=== PATIENT | male | born 1970 | race Caucasian/White ===

== ENCOUNTER 2023-09-18 12:26 | Outpatient (CLI) | payer OTHER, SELFPAY ==
--- NOTE | 2023-09-18 12:36 | CT_ITS ---
WS: [id number] CT ABDOMEN PELVIS TECHNIQUE: Contrast-enhanced CT of the abdomen and pelvis with coronal and sagittal reformatted image s. CLINICAL INFORMATION: RUQ PAIN COMPARISON: None. DLP: 697.[address] scans at [facility] use at least one of these dose optimization techniques: automated e xposure control; mA and/or kV adjustment per patient size (includes targeted exams where dose is matc hed to clinical indication); or iterative reconstruction. FINDINGS: Inflammatory stranding and edema about the hepatic flexure within the RIGHT upper quadrant. Findings suspicious for acute diverticulitis or colitis post colonoscopy. Small adjacent fluid collection in t his area abutting the traversing duodenum. Small fluid collection with air measures approximately 2.1 x 2.7 cm suspicious for a contained perforation. Small amount of fluid and edema extends to the gall bladder fossa although gallbladder otherwise appears normal. Recommend correlation with biliary funct ion studies. Diffuse fatty filtration of the liver. Hepatomegaly. Normal GE junction. Peripherally calcified splen ic cyst is similar in appearance to previous. Normal pancreas. Normal caliber abdominal aorta. Celiac and SMA appear patent. Reactive lymph nodes in the maryam hepatis. Adrenal glands are normal. Normal renal parenchymal enhancement. No hydronephrosis. Tiny fat-containing umbilical hernia. Normal appendix in the RIGHT lower quadrant. No free fluid in t he pelvis. Tiny noncalcified nodule in the RIGHT middle lobe measuring 3 mm. Additional noncalcified nodule along the fissure measuring 4 mm. Lung bases are well aerated. IMPRESSION: 1. Diffuse thickening with inflammatory stranding and edema involving the hepatic flexure colon susp icious acute focal colitis or diverticulitis post colonoscopy. Surrounding inflammatory stranding and edema. 2. Suspected small contained diverticular perforation with a fluid collection measuring 2.1 x 2.7 cm abutting the traversing duodenum. No free air in the abdomen. 3. Inflammatory stranding and edema extends to the gallbladder fossa which otherwise appears normal. Recommend correlation with gallbladder function studies. 4. Diffuse fatty infiltration liver of the liver with hepatomegaly. 5. 3 and 4 mm noncalcified nodules in the RIGHT middle lobe and along the fissure. RIGHT middle lobe nodule is stable since 2018. Recommend 12-month CT chest follow-up. 6. Stable previously described splenic cyst measuring 3.9 x 3.5 cm with peripheral calcification. Notified Adri ASHER at [facility] 09/18/2023 1:45 PM. Findings discussed with patient and . Patient will remain in the radiology suite pending decision regarding admission for intravenous antibiotics
[2023-09-18] MEDS: iohexol 350 mg/mL 500 mL Btl (per mL) IV (13:12)
== END 2023-09-18 12:27 | disposition home or self-care (01) ==
PROVIDERS: Family Provider Family Medicine; PCP Clinical Nurse Specialist Adult Health; Visit Provider Nurse Practitioner Family
DX: R10.11 Right upper quadrant pain (principal); R93.3 Abnormal findings on diagnostic imaging of other parts of digestive tract; K76.0 Fatty (change of) liver, not elsewhere classified; R91.8 Other nonspecific abnormal finding of lung field
CPT/HCPCS: 74177; Q9967

== ENCOUNTER 2023-09-18 14:07 | Inpatient (IN) | payer OTHER, SELFPAY ==
[2023-09-18 14:09] VITALS: BP 124/82; PULSE 83; RESP 16; TEMP 37.2; O2SAT 98; BMI 30.5
--- NOTE | 2023-09-18 14:27 | ED_ITS ---
HPI - Abdominal Pain General: Chief Complaint: Abdominal Pain Stated Complaint: perf bowel Time Seen by Provider: 09/18/23 14:21 Source: patient Mode of arrival: ambulatory Limitations: no limitations History of Present Illness: 53-year-old male states he had a colonoscopy a little over 2 weeks ago he states that he removed multiple polyps states he has been having severe abdominal pain since then. He states today his pain and actually improved slightly still having pain for [address] scan done and was sent here for CT scan for diverticulitis and possible perforation. No vomiting no fever Associated Symptoms: Denies chills, diarrhea, fever(s), nausea and vomiting Review of Systems Const: Denies: fever(s), chills, body aches or change in appetite ENMT: Denies: throat pain or dental pain Card: Denies: chest pain Resp: Denies: dyspnea GI: Reports: abdominal pain; Denies: nausea, vomiting or diarrhea Musc: Denies: neck pain or back pain Skin/Breast: Denies: rash Neuro: Denies: headache(s) Physical Exam Const: COMMON NORMALS: no acute distress, patient oriented x3 and healthy appearing HENMT: COMMON NORMALS: normocephalic and atraumatic HEAD & SCALP: normocephalic and atraumatic Neck/C-Spine: COMMON NORMALS: full ROM and supple Chest: COMMONS NORMALS: normal inspection of the chest and normal palpation of entire chest wall Resp: COMMON NORMALS: normal respiratory effort, No retractions, No use of accessory muscles and clear to auscultation bilaterally AUSCULTATION: clear to auscultation bilaterally Cardio: COMMON NORMALS: regular rate, regular rhythm and No murmurs present (Cardio) RATE: regular rate RHYTHM: regular rhythm GI: COMMON NORMALS: Normal to inspection, nondistended, normoactive bowel sounds present, Soft to palpation and no masses PALPATION: Yes Soft to palpation and Yes Tenderness to palpation present (GI) Details: LLQ Extremity: COMMON NORMALS: normal to inspection and full ROM Neuro: COMMON NORMALS: patient oriented x3, moves all extremities and no focal motor deficits Psych: COMMON NORMALS: mental status grossly normal, Normal thought process present and cooperative THOUGHT PROCESS: Normal thought process present Skin: COMMON NORMALS: no rashes or lesions noted and no wounds GENERAL SKIN EXAM: no rashes or lesions noted Course Vital Signs: Vital signs: Vital Signs Temperature 98.9 F 09/18/23 14:09 Pulse Rate 83 09/18/23 14:09 Respiratory Rate 16 09/18/23 14:09 Blood Pressure 124/82 09/18/23 14:09 Pulse Oximetry 98 09/18/23 14:09 MDM - Abdominal Pain Medical Decision Making Patient presents here with abdominal pain does have diverticulitis with a contained perforation blood work here is normal no signs of for ER spoke to surgery along with hospitalist will admit for IV antibiotics Medical Records I reviewed the patient's medical records. Lab Data I reviewed the patient's lab results. 09/18/23 14:30 09/18/23 14:30 Labs/Radiology: Laboratory Results WBC 8.31 10^3/uL (3.29-11.43) 09/18/23 14:30 RBC 4.50 10^6/uL (3.85-5.65) 09/18/23 14:30 Hgb 13.80 g/dL (11.27-16.99) 09/18/23 14:30 Hct 41.8 % (37-53) 09/18/23 14:30 MCV 92.9 fl (82-101) 09/18/23 14:30 MCH 30.7 pg (27-33) 09/18/23 14:30 MCHC 33.0 g/dL (30-55) 09/18/23 14:30 RDW 12.1 % (12.1-15.1) 09/18/23 14:30 Plt Count 481 10^3/cmm (157-399) H 09/18/23 14:30 MPV 8.5 fL (7.4-10.4) 09/18/23 14:30 Neut % (Auto) 55.5 % 09/18/23 14:30 Lymph % (Auto) 34.7 % 09/18/23 14:30 [place] % (Auto) 7.6 % 09/18/23 14:30 Eos % (Auto) 1.3 % 09/18/23 14:30 Baso % (Auto) 0.4 % 09/18/23 14:30 Neut # (Auto) 4.62 10^3/uL (1.8-7.7) 09/18/23 14:30 Lymph # (Auto) 2.9 10^3/uL (0.8-4.8) 09/18/23 14:30 [place] # (Auto) 0.6 10^3/uL (0.2-0.9) 09/18/23 14:30 Eos # (Auto) 0.1 10^3/uL (0.0-0.8) 09/18/23 14:30 Baso # (Auto) 0.0 10^3/uL (0.0-0.1) 09/18/23 14:30 Nucleated RBC % (auto) 0 % 09/18/23 14:30 Nucleated RBCs # 0.0 /100WBC 09/18/23 14:30 Sodium 136 mmol/L (136-145) 09/18/23 14:30 Potassium 4.0 mmol/L (3.5-5.1) 09/18/23 14:30 Chloride 98 mmol/L (98-107) 09/18/23 14:30 Carbon Dioxide 28 mmol/L (22-29) 09/18/23 14:30 Anion Gap 14.0 (5-19) 09/18/23 14:30 BUN 9 mg/dL (6-20) 09/18/23 14:30 Creatinine 0.7 mg/dL (0.7-1.2) 09/18/23 14:30 GFR Calculation 117.5 mL/min (90-130) 09/18/23 14:30 Glucose 118 mg/dL (65-115) H 09/18/23 14:30 Calculated Osmolality 282 mOsm/kg (285-295) L 09/18/23 14:30 Lactic Acid 1.5 mmol/L (0.5-2.2) 09/18/23 14:30 Calcium 9.5 mg/dL (8.5-10.5) 09/18/23 14:30 Total Bilirubin 0.3 mg/dL (0.15-1.2) 09/18/23 14:30 AST 20 U/L (0-40) 09/18/23 14:30 ALT 33 U/L (0-41) 09/18/23 14:30 Alkaline Phosphatase 88 U/L (40-130) 09/18/23 14:30 Total Protein 7.6 g/dL (6.6-8.7) 09/18/23 14:30 Albumin 3.9 g/dL (3.5-5.2) 09/18/23 14:30 Globulin 3.7 g/dL (1.3-4.6) 09/18/23 14:30 Lipase 44 U/L (13-60) 09/18/23 14:30 All radiology interpretation(s) finalized by discharge Discharge Plan Discharge Patient Disposition: Admitted As Inpatient Clinical Impression: Diverticulitis Condition: Stable Prescriptions: No Action Paxil 40 mg Tablet 40 mg PO QAM Referrals: Alex Rodriguez NP [Primary Care Provider] - Suraj Fitch MD [Family Provider] - Coding Level of Care Code ED Oracle Database Manager for Robert Us
[2023-09-18] MEDS: ciprofloxacin 400 MG/200 ML PREMIX 200 MG IV ×2 (14:41→20:10)
[2023-09-18] MEDS: metroNIDAZOLE IV 500 MG/100 ML PREMIX 100 MG IV ×2 (14:44→18:36)
[2023-09-18 15:20] LABS: Basophils % 0.4 %; Eosinophils # 0.1 10^3/uL (0.0-0.8); Eosinophils % 1.3 %; Hematocrit 41.8 % (37-53); Lymphocytes # 2.9 10^3/uL (0.8-4.8); Lymphocytes % 34.7 %; Mean Corpuscular Hemoglobin 30.7 pg (27-33); Mean Corpuscular Volume 92.9 fl (82-101); Mean Platelet Volume 8.5 fL (7.4-10.4); Monocytes # 0.6 10^3/uL (0.2-0.9); Monocytes % 7.6 %; Neutrophils # 4.62 10^3/uL (1.8-7.7); Neutrophils % 55.5 %; Nucleated Red Blood Cells % 0 %; Platelet Count 481 10^3/cmm (157-399); Red Cell Distribution Width 12.1 % (12.1-15.1); White Blood Count 8.31 10^3/uL (3.29-11.43)
[2023-09-18 15:26] LABS: Alanine Aminotransferase 33 U/L (0-41); Albumin Level 3.9 g/dL (3.5-5.2); Alkaline Phosphatase 88 U/L (40-130); Aspartate Amino Transferase 20 U/L (0-40); Blood Urea Nitrogen 9 mg/dL (6-20); Calcium 9.5 mg/dL (8.5-10.5); Carbon Dioxide 28 mmol/L (22-29); Chloride 98 mmol/L (98-107); Globulin 3.7 g/dL (1.3-4.6); Glomerular Filtration Rate 117.5 mL/min (90-130); Glucose 118 mg/dL (65-115); Lipase 44 U/L (13-60); Osmolality Calculated 282 mOsm/kg (285-295); Sodium 136 mmol/L (136-145); Total Bilirubin 0.3 mg/dL (0.15-1.2); Total Protein 7.6 g/dL (6.6-8.7)
[2023-09-18 15:27] LABS: Lactic Sepsis W/Reflex 1.5 mmol/L (0.5-2.2)
--- NOTE | 2023-09-18 18:26 | P.HP_ITS ---
Providers/Chief Complaint Admitting Physician: Alejandro Renteria DO Primary Care Provider: Alex Rodriguez Chief Complaint: perf bowel History of Present Illness Lucas Hyde is a 53 year old male status post colonoscopy on August 31. Patient states that that night he had onset of pain as well as fever. He continued to have significant pain over the next week or 2. He never repeated a fever. He his abdominal pain was improving. 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 He was finally frustrated and came to the emergency room for an answer. He states that his physician who completed the colonoscopy has been out of town since the exam and has not followed up with a provider. Patient states he has very minimal pain at this point. He has been without nausea. He has a poor appetite and gets full quickly. Review of Systems Const: Denies: chills Eyes: Denies: change in vision ENMT: Denies: throat pain or nasal congestion Card: Denies: chest pain or palpitations Resp: Denies: dyspnea or productive cough GI: Denies: nausea, vomiting or change in stool character : Denies: difficulty urinating or dysuria Musc: Denies: back pain or extremity pain Skin/Breast: Denies: rash or lesions Neuro: Denies: headache(s) or dizziness Psych: Denies: anxiety or depression [place]/Lymph: Denies: easy bruising or easy bleeding Medications/Allergies Home Medications Medication Instructions Recorded Confirmed Last Taken Type paroxetine HCl 40 mg tablet (Paxil) 40 mg PO QAM 09/18/23 09/18/23 09/18/23 History Allergies Allergy/AdvReac Type Severity Reaction Status Date / Time No Known Allergies Allergy Unverified 09/18/23 15:03 Vitals/I&O/Wt Last Vital Signs Temp 98.9 F 09/18/23 14:09 Pulse 83 09/18/23 14:09 Resp 16 09/18/23 14:09 BP 124/82 09/18/23 14:09 Pulse Ox 98 09/18/23 14:09 O2 Del Method Room Air 09/18/23 16:55 09/18/23 09/18/23 09/18/23 06:59 14:59 22:59 Intake Total 300 / 300 Balance 300 / 300 Weight last 48 hrs Weight 107.955 kg Physical Exam Narrative: Middle-age male in no acute distress. HEENT head is normocephalic atraumatic pupils equal and reactive to light and accommodation extraocular muscles are intact there is no scleral icterus neck is supple no JVD carotid bruits or lymphadenopathy Chest rises symmetrically with inspiration Respiratory normal breath sounds normal effort no wheezes rales or rhonchi Heart: Normal S1-S2 without murmurs clicks gallops or rubs Abdomen mildly tender to deep palpation in the right mid abdomen bowel sounds are sluggish no hepatosplenomegaly no rebound rigidity or guarding Back/pelvis: No kyphosis or scoliosis noted no CVA tenderness. Neuro alert and oriented x4 nonfocal motor and sensory exam cranial nerves II through XII grossly intact Psych: Mood and affect appropriate Skin no lesions or rash noted Data 09/18/23 14:30 09/18/23 14:30 Micro: Microbiology 09/18/23 14:52 Blood Culture - Preliminary Blood SPECIMEN COLLECTED 09/18/23 14:50 Blood Culture - Preliminary Blood SPECIMEN COLLECTED CT Abd/Pel: Radiologist's impression: IMPRESSION: 1.? Diffuse thickening with inflammatory stranding and edema involving the hepat ic flexure colon suspicious acute focal colitis or diverticulitis post colonoscopy. Surrounding inflammatory stranding and edema. 2.? Suspected small contained diverticular perforation with a fluid collection measuring 2.1 x 2.7 cm abutting the traversing duodenum. No free air in the abdomen. 3.? Inflammatory stranding and edema extends to the gallbladder fossa which otherwise appears normal. Recommend correlation with gallbladder function studies. 4.? Diffuse fatty infiltration liver of the liver with hepatomegaly. 5.? 3 and 4 mm noncalcified nodules in the RIGHT middle lobe and along the fis sure. RIGHT middle lobe nodule is stable since 2018. Recommend 12-month CT chest follow-up. 6.? Stable previously described splenic cyst measuring 3.9 x 3.5 cm with peripheral calcification. A&P Assessment and plan (1) Diverticulitis: Cipro and Flagyl Overall patient is better than post colonoscopy. We will still treat for a total of 10 to 14 days. (2) Perforation bowel: As below contained. (3) Fatty liver disease, nonalcoholic: Newly diagnosed (4) Status post colonoscopy with polypectomy: Patient reports 7 polyps removed and I do not find any pathology reports. (5) Depression: Continue Paxil Attestations Medical Necessity Statement*: Admitted for diverticulitis with contained perforated bowel in the transverse colon. Requires IV antibiotics and bowel rest Coding Level of Care Code Acute Code for Chg Fwd Diagnoses Diverticulitis K57.92 Perforation bowel K63.1 Fatty liver disease, nonalcoholic K76.0 Status post colonoscopy with polypectomy Z98.890 Depression F32.A
[2023-09-18] MEDS: sodium chloride 0.9% 1,000 ML 100 ML IV (18:35)
[2023-09-18] MEDS: enoxaparin 40 mg/0.4 mL Syringe SUBCUT (18:35)
[2023-09-18 19:00] VITALS: BP 145/95; PULSE 79; RESP 19; TEMP 36.8; O2SAT 98
[2023-09-18 23:40] VITALS: BP 128/73; PULSE 77; RESP 19; TEMP 36.9; O2SAT 95
[2023-09-19] MEDS: metroNIDAZOLE IV 500 MG/100 ML PREMIX 100 MG IV ×3 (02:13→17:47)
[2023-09-19 03:38] VITALS: BP 124/81; PULSE 71; RESP 19; TEMP 36.9; O2SAT 97
[2023-09-19 05:05] LABS: Basophils % 0.4 %; Eosinophils # 0.1 10^3/uL (0.0-0.8); Eosinophils % 1.6 %; Hematocrit 40.3 % (37-53); Lymphocytes # 2.6 10^3/uL (0.8-4.8); Lymphocytes % 31.7 %; Mean Corpuscular HGB Conc 32.3 g/dL (30-55); Mean Corpuscular Hemoglobin 30.7 pg (27-33); Mean Platelet Volume 8.3 fL (7.4-10.4); Monocytes # 0.5 10^3/uL (0.2-0.9); Monocytes % 6.4 %; Neutrophils # 4.81 10^3/uL (1.8-7.7); Neutrophils % 59.2 %; Nucleated Red Blood Cells % 0 %; Platelet Count 393 10^3/cmm (157-399); Red Blood Count 4.24 10^6/uL (3.85-5.65); Red Cell Distribution Width 12.2 % (12.1-15.1); White Blood Count 8.12 10^3/uL (3.29-11.43)
[2023-09-19 05:25] LABS: Anion Gap 12.4 (5-19); Blood Urea Nitrogen 8 mg/dL (6-20); Calcium 9.3 mg/dL (8.5-10.5); Carbon Dioxide 30 mmol/L (22-29); Chloride 98 mmol/L (98-107); Glomerular Filtration Rate 117.5 mL/min (90-130); Glucose 120 mg/dL (65-115); Osmolality Calculated 282 mOsm/kg (285-295); Potassium 4.4 mmol/L (3.5-5.1); Sodium 136 mmol/L (136-145)
[2023-09-19] MEDS: ciprofloxacin 400 MG/200 ML PREMIX 200 MG IV ×2 (06:21→17:46)
[2023-09-19] MEDS: sodium chloride 0.9% 1,000 ML 100 ML IV ×2 (06:21→20:31)
[2023-09-19] MEDS: PARoxetine 20 mg Tablet 40 MG PO (06:26)
[2023-09-19 07:38] VITALS: BP 121/78; PULSE 74; RESP 17; TEMP 36.5; O2SAT 97
--- NOTE | 2023-09-19 08:24 | P.CONIM_ITS ---
Providers/Reason For Consult Consulting Physician/Specialty*: Dr. Christian Smith DO/General surgery Reason for Consult*: Complicated diverticulitis Attending Physician: Alejandro Renteria DO Primary Care Provider: Alex Rodriguez History of Present Illness History of Present Illness Lucas Hyde is a 53 year old male who presented to the hospital with a 2-1/2-week history of right upper quadrant abdominal pain nausea and anorexia. He had his first colonoscopy on August 31 at an outside facility and later that night had abdominal pain fever and chills. He reported that he has had pain ever since but that it slowly improved over time. The pain is located in the right upper quadrant and does not radiate. Palpation made the pain worse. Nothing made the pain better. He denies any emesis, diarrhea, constipation, hematochezia and/or melena. He had a CT of the abdomen pelvis in the ER yesterday which showed perforated diverticulitis with a contained micrope rforation at the hepatic flexure of the colon and significant surrounding inflammation. He was admitted to the hospital for IV antibiotics. Review of Systems General: Reports: 10 or more systems reviewed and unremarkable except in HPI and below Medications/Allergies Home Medications Medication Instructions Recorded Confirmed Last Taken Type paroxetine HCl 40 mg tablet (Paxil) 40 mg PO QAM 09/18/23 09/18/23 09/18/23 History Allergies Allergy/AdvReac Type Severity Reaction Status Date / Time No Known Allergies Allergy Unverified 09/18/23 15:03 Current Medications Generic Name Dose Route Start Last Admin Trade Name Freq PRN Reason Stop Dose Admin Enoxaparin Sodium 40 mg 09/18/23 18:30 09/18/23 18:35 Enoxaparin 40 Mg/0.4 Ml Syringe SUBCUT 40 mg Q24H BLOSSOM Administration Sodium Chloride 1,000 mls @ 100 mls/hr 09/18/23 18:30 09/19/23 06:21 Sodium Chloride 0.9% IV 100 mls/hr .Q10H BLOSSOM Administration Ciprofloxacin/Dextrose 400 mg in 200 mls @ 200 mls/hr 09/18/23 18:30 09/19/23 06:21 Cipro IV 200 mls/hr Q12H BLOSSOM Administration Protocol Metronidazole 500 mg in 100 mls @ 100 mls/hr 09/18/23 18:30 09/19/23 03:31 Flagyl Iv IV Infused Q8H BLOSSOM Infusion Protocol Paroxetine HCl 40 mg 09/19/23 06:00 09/19/23 06:26 Paroxetine 20 Mg Tablet PO 40 mg QAM BLOSSOM Administration Vitals/I&O/Wt Last Vital Signs Temp 97.7 F 09/19/23 07:38 Pulse 74 09/19/23 07:38 Resp 17 09/19/23 07:38 BP 121/78 09/19/23 07:38 Pulse Ox 97 09/19/23 07:38 O2 Del Method Room Air 09/18/23 19:00 09/18/23 09/19/23 09/19/23 22:59 06:59 14:59 Intake Total 1080 / 1080 1100 / 2180 Balance 1080 / 1080 1100 / 2180 Weight last 48 hrs Weight 238 lb Physical Exam Narrative: General : Patient is well developed , no acute distress, oriented x3 Head : Normal cephalic, a-traumatic. Ears : Pinnae and external canal are normal. Hearing is normal. Eyes : PERRLA, Sclera and injection are normal. No conjunctival discharge. Nose : Mucous membranes are without erythema. Throat : buccal mucosa is normal, gums are without significant recession or hypertrophy. Lungs : Equal chest rise bilaterally, no use of accessory muscles, trachea is midline. Cor : Rate and rhythm are normal. Abdomen : Soft, ND, NT, no g/r/m Extremities : No edema, no cyanosis or clubbing, dorsalis pedis pulses are prese nt bilaterally, non-tender to palpation of calves. Upper extremities are normal bilaterally. Back : non-tender to palpation, no CVA tenderness. Neuro : CN II - XII intact, Upper and lower extremities have equal and full strength Data 09/19/23 04:53 09/19/23 04:53 Micro: Microbiology 09/18/23 14:52 Blood Culture - Preliminary Blood SPECIMEN COLLECTED 09/18/23 14:50 Blood Culture - Preliminary Blood SPECIMEN COLLECTED A&P Assessment and plan (1) Diverticulitis of large intestine with complication: (2) Status post colonoscopy with polypectomy: Plan Recommend 24 to 48 hours of IV antibiotics followed by a 2-week course of Augmentin 875/125 twice daily. I will advance him to a full liquid diet which she can be discharged on. He can advance to a regular diet at home. I would like to see him in 2 weeks and have him get a repeat CT of the abdomen pelvis with IV contrast just prior to seeing me in the office. If his inflammation and abscess have not improved at that time we will consider IR drainage or possible infectious disease consult. No acute surgical intervention. Medical management per hospitalist Coding Level of Care Code 58636 Diagnoses Diverticulitis of large intestine with complication K57.32 Status post colonoscopy with polypectomy Z98.890
--- NOTE | 2023-09-19 08:33 | PC.CHAP ---
Pastoral Care Encounter/Spiritual Assessment Type of Contact [] Declined stock receiver visit [] Patient/Family/Request visit [] Outpatient visit [] Follow-up visit [] Physician referral [] Code/Alert [x] Routine visit [] Staff referral [] Actively dying [] Patient sleeping [] Family support [] [] Out of room [] Palliative care [] [] Receiving care in room [] Pre-surgical visit [] Trauma [] Long length of stay [] ICU visit [] Other: Relational/Emotional Strength [x] Patient feels connected with others/family/visitors/staff [] Distress [] Loneliness/isolation [] Abandonment Spirituality of Patient [] Person of Jocelynn [] Attends Judaism of their Jocelynn [] Believes in Prayer [] Reads Bible or Jehovah'S Witness materials [x] There are Spiritual issues to be addressed Aircraft Designer Interventions [] Prayer [] Active listening [] Non-anxious presence [] Spiritual/emotional support [] Crisis/trauma care [] Spiritual counseling [] Bereavement support [] Provided bereavement packet [] Provided Bible/devotional materials [] Provided toy/stuffed animal, coloring book to patient or family member [] Provided Communion [] Anointing/[place] [] Salvation [] Completed spiritual assessment [x] Other: Declined Aircraft Designer visit Impact on Illness or Injury [] Angry [] Fearful [] Anxious [] Often cries [] Exhaustion [] Unable to work [] Unable to attend jain [] Unable to walk/stand [] Unable to read [] Unable to drive [] Unable to eat/drink [] Unable to sleep [] Unable to be with family [] Patient intubated [] Other: Summary Time spent with patient
--- NOTE | 2023-09-19 11:26 | PM.PN ---
Subjective Subjective: Patient seen with at bedside. He reports he has no further abdominal pain. He reports that he is hungry and would like an increase in his diet Vitals/I&O/Wt Last Vital Signs Temp 97.7 F 09/19/23 07:38 Pulse 74 09/19/23 07:38 Resp 17 09/19/23 07:38 BP 121/78 09/19/23 07:38 Pulse Ox 97 09/19/23 07:38 O2 Del Method Room Air 09/18/23 19:00 09/18/23 09/19/23 09/19/23 22:59 06:59 14:59 Intake Total 1080 / 1080 1100 / 2180 200 / 200 Balance 1080 / 1080 1100 / 2180 200 / 200 Weight last 48 hrs Weight 107.955 kg Physical Exam Narrative: General : Patient is well developed , no acute distress, oriented x3 Heart: Regular normal S1-S2 without murmurs clicks gallops rubs Lungs : Clear to auscultation Abdomen : Soft, nontender to deep palpation in the right mid abdomen Extremities : No clubbing cyanosis or edema Data 09/19/23 04:53 09/19/23 04:53 Micro: Microbiology 09/18/23 14:52 Blood Culture - Preliminary Blood SPECIMEN COLLECTED 09/18/23 14:50 Blood Culture - Preliminary Blood SPECIMEN COLLECTED A&P Assessment and plan (1) Diverticulitis: Cipro and Flagyl Overall patient is better than post colonoscopy. We will still treat for a total of [address] Smith saw patient today and recommends a 14-day antibiotic course switching to Augmentin at discharge Advance to full liquid diet as per Dr. Smith's recommendations Dr. Smith will follow-up in 2 weeks with a repeat CT of abdomen and pelvis (2) Perforation bowel: As below contained. (3) Fatty liver disease, nonalcoholic: Newly diagnosed (4) Status post colonoscopy with polypectomy: Patient reports 7 polyps removed and I do not find any pathology reports. (5) Depression: Continue Paxil Attestations Medical Necessity Statement*: Admitted for diverticulitis with contained perforated bowel in the transverse colon. Requires IV antibiotics and bowel rest Coding Level of Care Code Acute Code for [facility] Diagnoses Diverticulitis K57.92 Perforation bowel K63.1 Fatty liver disease, nonalcoholic K76.0 Status post colonoscopy with polypectomy Z98.890 Depression F32.A
[2023-09-19 12:00] VITALS: BP 127/85; PULSE 76; RESP 17; TEMP 36.6; O2SAT 96
[2023-09-19 15:54] VITALS: BP 120/69; PULSE 77; RESP 17; TEMP 36.8; O2SAT 97
[2023-09-19] MEDS: enoxaparin 40 mg/0.4 mL Syringe SUBCUT (17:46)
[2023-09-19 19:52] VITALS: BP 109/69; PULSE 73; RESP 16; TEMP 36.8; O2SAT 97
[2023-09-20] VITALS: BP 132/74; PULSE 67; RESP 15; TEMP 36.9; O2SAT 96
[2023-09-20] MEDS: metroNIDAZOLE IV 500 MG/100 ML PREMIX 100 MG IV (03:50)
[2023-09-20 04:00] VITALS: BP 125/75; PULSE 74; RESP 16; TEMP 36.7; O2SAT 95
[2023-09-20] MEDS: PARoxetine 20 mg Tablet 40 MG PO (06:36)
[2023-09-20] MEDS: sodium chloride 0.9% 1,000 ML 100 ML IV (06:36)
[2023-09-20] MEDS: ciprofloxacin 400 MG/200 ML PREMIX 200 MG IV (06:56)
[2023-09-20 07:15] VITALS: BP 123/77; PULSE 73; RESP 18; TEMP 36.7; O2SAT 96
--- NOTE | 2023-09-20 10:31 | PM.DCS ---
Discharge Providers Date of Admission: 09/18/23 15:37 Date of Discharge: September 20, 2023 Attending Provider at Admission: Alejandro Renteria DO Attending Provider at Discharge: Alejandro Renteria DO Consults: Dr. Smith - surgery Primary Care Provider: Alex Rodriguez Diagnoses at Discharge Discharge Diagnosis (1) Diverticulitis: Status: Acute (2) Perforation bowel: Status: Acute Permanent problem details: Contained small diverticular perforation with fluid collection measuring 2.1 x 2.7 cm (3) Fatty liver disease, nonalcoholic: Status: Chronic (4) Status post colonoscopy with polypectomy: Status: Acute (5) Depression: Status: Acute Reason for Visit Reason for Visit: perf bowel Brief History: Lucas Hyde is a 53 year old male status post colonoscopy on August 31.? Patient states that that night he had onset of pain as well as fever.? He continued to have significant pain over the next week or 2.? He never repeated a fever.? He his abdominal pain was improving.? 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 He was finally frustrated and came to the emergency room for an answer.? He states that his physician who completed the colonoscopy has been out of town since the exam and has not followed up with a provider. Patient states he has very minimal pain at this point.? He has been without nausea.? He has a poor appetite and gets full quickly. Hospital Course Hospital Course Patient was found to have 1.? Diffuse thickening with inflammatory stranding and edema involving the hepatic flexure colon suspicious acute focal colitis or diverticulitis post colonoscopy. Surrounding inflammatory stranding and edema. 2.? Suspected small contained diverticular perforation with a fluid collection measuring 2.1 x 2.7 cm abutting the traversing duodenum. No free air in the abdomen. 3.? Inflammatory stranding and edema extends to the gallbladder fossa which otherwise appears normal. Recommend correlation with gallbladder function studies. He was admitted for IV antibiotics and close follow-up regarding the contained perforation for worsening. Patient tolerated the IV antibiotics well. His pain was quick to resolve. Surgery consult was obtained and recommended 14-day course of antibiotics and then CT scan to follow-up this area of perforation to ascertain resolution or if further work-up will be needed. Patient is discharged in stable and improved condition with dietary recommendations of soft bland diet and increasing as tolerated. He was educated on the nausea vomiting diarrhea side effects of Augmentin and counseled to follow-up with surgeon if side effects occur. Physical Exam Narrative: General : Patient is well developed , no acute distress, oriented x3 Heart: Regular normal S1-S2 without murmurs clicks gallops rubs Lungs : Clear to auscultation Abdomen : Soft, nontender to deep palpation in the right mid abdomen Extremities : No clubbing cyanosis or edema Discharge Data Studies Completed and Pending Pending at discharge Category Date Time Status Blood Culture Stat Lab 09/18/23 14:52 Results Laboratory Results WBC 8.12 10^3/uL (3.29-11.43) 09/19/23 04:53 RBC 4.24 10^6/uL (3.85-5.65) 09/19/23 04:53 Hgb 13.00 g/dL (11.27-16.99) 09/19/23 04:53 Hct 40.3 % (37-53) 09/19/23 04:53 MCV 95.0 fl (82-101) 09/19/23 04:53 MCH 30.7 pg (27-33) 09/19/23 04:53 MCHC 32.3 g/dL (30-55) 09/19/23 04:53 RDW 12.2 % (12.1-15.1) 09/19/23 04:53 Plt Count 393 10^3/cmm (157-399) 09/19/23 04:53 MPV 8.3 fL (7.4-10.4) 09/19/23 04:53 Neut % (Auto) 59.2 % 09/19/23 04:53 Lymph % (Auto) 31.7 % 09/19/23 04:53 [place] % (Auto) 6.4 % 09/19/23 04:53 Eos % (Auto) 1.6 % 09/19/23 04:53 Baso % (Auto) 0.4 % 09/19/23 04:53 Neut # (Auto) 4.81 10^3/uL (1.8-7.7) 09/19/23 04:53 Lymph # (Auto) 2.6 10^3/uL (0.8-4.8) 09/19/23 04:53 [place] # (Auto) 0.5 10^3/uL (0.2-0.9) 09/19/23 04:53 Eos # (Auto) 0.1 10^3/uL (0.0-0.8) 09/19/23 04:53 Baso # (Auto) 0.0 10^3/uL (0.0-0.1) 09/19/23 04:53 Nucleated RBC % (auto) 0 % 09/19/23 04:53 Nucleated RBCs # 0.0 /100WBC 09/19/23 04:53 Sodium 136 mmol/L (136-145) 09/19/23 04:53 Potassium 4.4 mmol/L (3.5-5.1) 09/19/23 04:53 Chloride 98 mmol/L (98-107) 09/19/23 04:53 Carbon Dioxide 30 mmol/L (22-29) H 09/19/23 04:53 Anion Gap 12.4 (5-19) 09/19/23 04:53 BUN 8 mg/dL (6-20) 09/19/23 04:53 Creatinine 0.7 mg/dL (0.7-1.2) 09/19/23 04:53 GFR Calculation 117.5 mL/min (90-130) 09/19/23 04:53 Glucose 120 mg/dL (65-115) H 09/19/23 04:53 Calculated Osmolality 282 mOsm/kg (285-295) L 09/19/23 04:53 Lactic Acid 1.5 mmol/L (0.5-2.2) 09/18/23 14:30 Calcium 9.3 mg/dL (8.5-10.5) 09/19/23 04:53 Total Bilirubin 0.3 mg/dL (0.15-1.2) 09/18/23 14:30 AST 20 U/L (0-40) 09/18/23 14:30 ALT 33 U/L (0-41) 09/18/23 14:30 Alkaline Phosphatase 88 U/L (40-130) 09/18/23 14:30 Total Protein 7.6 g/dL (6.6-8.7) 09/18/23 14:30 Albumin 3.9 g/dL (3.5-5.2) 09/18/23 14:30 Globulin 3.7 g/dL (1.3-4.6) 09/18/23 14:30 Lipase 44 U/L (13-60) 09/18/23 14:[address] Abd/Pel: Radiologist's impression: IMPRESSION: 1.? Diffuse thickening with inflammatory stranding and edema involving the hepatic flexure colon suspicious acute focal colitis or diverticulitis post colonoscopy. Surrounding inflammatory stranding and edema. 2.? Suspected small contained diverticular perforation with a fluid collection measuring 2.1 x 2.7 cm abutting the traversing duodenum. No free air in the abdomen. 3.? Inflammatory stranding and edema extends to the gallbladder fossa which otherwise appears normal. Recommend correlation with gallbladder function studies. 4.? Diffuse fatty infiltration liver of the liver with hepatomegaly. 5.? 3 and 4 mm noncalcified nodules in the RIGHT middle lobe and along the fissure. RIGHT middle lobe nodule is stable since 2018. Recommend 12-month CT chest follow-up. 6.? Stable previously described splenic cyst measuring 3.9 x 3.5 cm with peripheral calcification. Vitals Last Vital Signs Temp 98.1 F 09/20/23 07:15 Pulse 73 09/20/23 07:15 Resp 18 09/20/23 07:15 BP 123/77 09/20/23 07:15 Pulse Ox 96 09/20/23 07:15 O2 Del Method Room Air 09/20/23 07:15 Discharge Plan Discharge Patient Disposition: Home Condition: Stable Prescriptions: New amoxicillin-pot clavulanate 875-125 mg tablet 1 tab PO Q12H Qty: 24 0RF Continued Paxil 40 mg Tablet 40 mg PO QAM Discharge Orders: Discharge Order (Routine); Ordered 09/20/23 Ordered By: Alejandro Renteria Referrals: Christian Smith DO [Physician] - 2 weeks Alex Rodriguez NP [Primary Care Provider] - Suraj Fitch MD [Family Provider] - Discharge Diet: Advance as tolerated Discharge Activity: Increase activity as tolerated Discharge Attestations Time Spent in Discharge Care*: less than 30 min Quality Metrics Clinical Quality Measures [ No reported AMI, CVA or VTE this stay] Coding Level of Care Code Acute Code for Chg Fwd Diagnoses Diverticulitis K57.92 Perforation bowel K63.1 Fatty liver disease, nonalcoholic K76.0 Status post colonoscopy with polypectomy Z98.890 Depression F32.A
[2023-09-20 11:17] VITALS: BP 123/81; PULSE 73; RESP 16; TEMP 36.7; O2SAT 95
[2023-09-20 11:45] VITALS: BP 123/81; PULSE 73; RESP 16; TEMP 36.7; O2SAT 95
--- NOTE | 2023-09-20 12:14 | PC.NURSE ---
Discussed discharge paperwork, new medications and follow up visits with patient. Patient verbalized understanding.
== END 2023-09-20 11:45 | disposition home or self-care (01) | DRG 392 ==
LOC: ER 15:46 → MEDSURG 16:06
PROVIDERS: Admitting Provider Internal Medicine; Emergency Provider Emergency Medicine; Family Provider Family Medicine; PCP Clinical Nurse Specialist Adult Health; Visit Provider Internal Medicine
DX: K57.20 Diverticulitis of large intestine with perforation and abscess without bleeding (principal); K76.0 Fatty (change of) liver, not elsewhere classified; Z86.010 Personal history of colon polyps; Z98.890 Other specified postprocedural states; F32.A Depression, unspecified
CPT/HCPCS: 36415; 80048; 80053; 83605; 83690; 85025; 87040; 96365; 96367; 96372; 99285; J0744; J1650; J3490; J7030

== ENCOUNTER 2023-09-27 13:41 | Outpatient (CLI) | payer OTHER, SELFPAY ==
--- NOTE | 2023-09-27 13:30 | CT_ITS ---
WS: [id number] CT ABDOMEN PELVIS TECHNIQUE: Contrast-enhanced CT of the abdomen and pelvis with coronal and sagittal reformatted image s. CLINICAL INFORMATION: diverticulitis COMPARISON: 09/18/2023 DLP: 762.[address] scans at [facility] use at least one of these dose optimization techniques: automated e xposure control; mA and/or kV adjustment per patient size (includes targeted exams where dose is matc hed to clinical indication); or iterative reconstruction. FINDINGS: Again seen is the previously described inflammatory stranding and edema about the hepatic flexure within the RIGHT upper quadrant compatible with acute diverticulitis with perforation. Previously buster cribed small adjacent fluid collection in this area abutting the traversing duodenum today measures 1 .2 x 0.9 cm decreased in size compared to previous. Improved inflammatory stranding and edema within the RIGHT upper quadrant compared to previous. Findings overall are improved compared to 09/18/2023. Adjacent gallbladder is contracted with reactive enhancement. No other significant changes compared t o previous. Diffuse fatty infiltration of the liver. Hepatomegaly. Normal GE junction. Peripherally calcified spl enic cyst is similar in appearance to previous. Normal pancreas. Normal caliber abdominal aorta. Venus ac and SMA appear patent. Reactive lymph nodes in the maryam hepatis. Adrenal glands are normal. Normal renal parenchymal enhancement. No hydronephrosis. Tiny fat-containi ng umbilical hernia. Tiny noncalcified nodule in the RIGHT middle lobe measuring 3 mm. Additional non calcified nodule along the fissure measuring 4 mm. Lung bases are well aerated. IMPRESSION: 1. Improved perforated diverticulitis along the hepatic flexure with improved surrounding inflammato ry stranding and edema. Recommend follow-up to resolution. 2. Previously described peripheral enhancing fluid collection involving the traversing duodenum has decreased in size today measuring 1.2 x 0.9 cm. 3. No other significant changes compared to previous.
[2023-09-27] MEDS: iohexol 350 mg/mL 500 mL Btl (per mL) IV (14:09)
== END 2023-09-27 13:42 | disposition home or self-care (01) ==
LOC: RAD 13:42
PROVIDERS: Family Provider Family Medicine; PCP Clinical Nurse Specialist Adult Health; Visit Provider Surgery
DX: K57.32 Diverticulitis of large intestine without perforation or abscess without bleeding (principal)
CPT/HCPCS: 74177; Q9967

== ENCOUNTER 2024-06-18 10:29 | Outpatient (CLI) | payer SELFPAY ==
--- NOTE | 2024-06-18 10:38 | XR_ITS ---
WS: [id number] XR hip RT 2-3V wo/w pel* [id number] REASON FOR EXAM: PAIN IN RIGHT HIP FINDINGS: No acute fracture. Mild narrowing of the joint space. Moderate subchondral sclerosis of the acetabulum with osteophytosis. There is a vaguely defined lucency and sclerosis within the femoral head. Similar findings are seen i n the left femoral head with a more significant and denser sclerosis. These findings were present in both femoral heads on a previous CT scan of 09/27/2023. No soft tissue abnormality. XR/XR hip RT 2-3V wo/w pel* [id number] IMPRESSION: Mild to moderate osteoarthritis of the right hip. 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
== END 2024-06-18 10:30 | disposition home or self-care (01) ==
LOC: RADOUTREAD 10:33
PROVIDERS: Family Provider Family Medicine; Visit Provider Electrodiagnostic Medicine
DX: M16.11 Unilateral primary osteoarthritis, right hip (principal)

== ENCOUNTER → 2024-10-18 08:28 | Outpatient (BNVA) | payer OTHER, SELFPAY | PROVIDERS: Family Provider Family Medicine; Visit Provider Student in an Organized Health Care Education/Training Program | DX: M16.11 Unilateral primary osteoarthritis, right hip (principal); R03.0 Elevated blood-pressure reading, without diagnosis of hypertension | CPT/HCPCS: 77002 ==

== ENCOUNTER → 2024-12-23 16:06 | Outpatient (BNVA) | payer OTHER, SELFPAY | PROVIDERS: Family Provider Family Medicine; Visit Provider Podiatrist Foot & Ankle Surgery | DX: L97.512 Non-pressure chronic ulcer of other part of right foot with fat layer exposed; M20.41 Other hammer toe(s) (acquired), right foot; M20.42 Other hammer toe(s) (acquired), left foot | CPT/HCPCS: 73630 ==

== ENCOUNTER → 2024-12-25 09:12 | Outpatient (BNVA) | payer OTHER, SELFPAY | PROVIDERS: Family Provider Family Medicine; Visit Provider Thoracic Surgery (Cardiothoracic Vascular Surgery) | DX: G62.9 Polyneuropathy, unspecified (principal) | CPT/HCPCS: 87070; 87176; 87205 ==